=== PATIENT | female | born 1985 ===

== ENCOUNTER 2020-11-13 04:50 | Day surgery (SDC) | payer OTHER ==
[~2020-11-13 04:50] MED LIST: KEFLEX500 MG PO; MACROBID 100 M100 MG PO; NASAL MIST126 ML; ZANTAC300 MG PO; ZOFRAN4 MG PO
== END 2020-11-13 14:51 | disposition home or self-care (01) ==
LOC: CIR.AMB 04:50
PROVIDERS: ATTEND Specialist
DX: T83.89XA Other specified complication of genitourinary prosthetic devices, implants and grafts, initial encounter (principal); Z20.828 Contact with and (suspected) exposure to other viral communicable diseases

== ENCOUNTER 2021-07-12 09:53 | Emergency (ER) | payer OTHER ==
[~2021-07-12] VITALS: Ht 157.5 cm; Wt 79.4 kg
[2021-07-12] MEDS ORDERED: PRENA1 TRUE CO1 EACH (10:14)
== END 2021-07-12 14:00 | disposition home or self-care (01) ==
LOC: ER 09:53
DX: R10.2 Pelvic and perineal pain (principal); Z33.1 Pregnant state, incidental

== ENCOUNTER 2021-12-31 06:05 | Inpatient (IN) | payer OTHER ==
[~2021-12-31] VITALS: Ht 157.5 cm; Wt 81.6 kg
[~2021-12-31 06:05] MED LIST changes: +PRENA1 TRUE CO1 EACH
[2021-12-31] MEDS ORDERED: FOLIC ACID0.8 M1 (08:37)
[2021-12-31] MEDS ORDERED: HEPARIN SUBCUTANEO (08:37)
[2021-12-31] MEDS ORDERED: IRON236 MG (08:37)
== END 2022-01-02 12:44 | disposition home or self-care (01) | DRG 807 ==
LOC: OB/GYN 06:05 → LDR 06:05 → OB/GYN 15:04
PROVIDERS: ADMIT Specialist; ATTEND Specialist
PROC: 10E0XZZ Delivery of Products of Conception, External Approach (ICD-10-PCS; principal; 2021-12-31)
PROC: 0W8NXZZ Division of Female Perineum, External Approach (ICD-10-PCS; 2021-12-31)
PROC: 4A1HXCZ Monitoring of Products of Conception, Cardiac Rate, External Approach (ICD-10-PCS; 2021-12-31)
DX: O80 Encounter for full-term uncomplicated delivery (principal); Z37.0 Single live birth; Z3A.38 38 weeks gestation of pregnancy; Z20.822 Contact with and (suspected) exposure to COVID-19